=== PATIENT | male | born 1985 | race Caucasian/White ===

== ENCOUNTER 2023-05-30 06:38 | Emergency (ER) | payer SELFPAY ==
--- NOTE | 2023-05-30 06:38 | ED.GENADUL1 ---
HPI - General Adult General Stated complaint: HEAD INJURY Time Seen by Provider: 05/30/23 06:38
--- NOTE | 2023-05-30 06:39 | CT_ITS ---
The [address] [address] Patient Name: CATALINO COLE MRN: [id number] date: 1985 Sex: M Assigned Patient Location: ED.MAIN Current Patient Location: ED.MAIN Accession/Order Number: [id number] Exam Date: 05/30/2023 06:55 Report Date: 05/30/2023 08:14 At the request of: SADA FREY Procedure: CT head/brain wo con EXAM: CT head/brain wo con CLINICAL INDICATION: head injury COMPARISON: None TECHNIQUE: Axial CT images of the brain were obtained without contrast. Coronal and sagittal reformats were obtained. Dose reduction techniques were achieved by using automated exposure control and/or adjustment of mA and/or kV according to patient size and/or use of iterative reconstruction technique. FINDINGS: Limited evaluation due to beam hardening and patient motion artifacts. Focal right frontal convexity subdural hemorrhage measuring approximately 0.5 cm in greatest radial dimension. No hydrocephalus, midline shift, or acute infarction. No other mass effect. Grossly patent basal cisterns. No calvarial fracture. Normal soft tissues. Paranasal sinuses are well-aerated. Bilateral middle ear and mastoid effusions. CT/CT head/brain wo con IMPRESSION: 1. Limited evaluation due to beam hardening and patient motion artifacts. Given this constraints, there is focal right frontal convexity subdural hemorrhage measuring approximately 0.5 cm in greatest radial dimension. 2. No midline shift. Critical results were NOTIFIED by TELEPHONE BY Dr. Camelia Medel, DO to Dr. Mei at 05/30/2023 8:14 AM EDT. Electronically authenticated by: CAMELIA MEDEL Date: 05/30/2023 08:14
[2023-05-30 06:41] VITALS: BP 145/88; PULSE 114; RESP 16; TEMP 36.6; O2SAT 97; BMI 21.8
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
== END 2023-05-30 07:08 ==
LOC: ER 07:16
PROVIDERS: Emergency Provider Emergency Medicine
DX: S09.8XXA Other specified injuries of head, initial encounter (principal); W22.8XXA Striking against or struck by other objects, initial encounter; E11.9 Type 2 diabetes mellitus without complications
CPT/HCPCS: 70450; 99284